=== PATIENT | male | born 1925 ===

== ENCOUNTER 2016-12-29 13:53 | Inpatient (IN) | payer MEDICARE, OTHER ==
[2016-12-29 13:53] VITALS: PULSE 83
[2016-12-29] MEDS ORDERED: Sodium Chloride 0.9% 1,000 ML IV STA ×3 (14:42→17:08)
--- NOTE | 2016-12-29 14:44 | ED PDOC ---
Hyperglycemia/Hypoglycemia Time Seen by Provider: 12/29/16 14:06 Chief Complaint (Nursing): High Blood Sugar Chief Complaint (Provider): Hyperglycemia History Per: Family (), Other (homemaker) History/Exam Limitations: clinical condition (patient has prior hx of severe Alzheimer's Dementia) Onset/Duration Of Symptoms: Days (today) Current Symptoms Are (Timing): Still Present Current Diabetic Medications: Insulin Associated Infectious Symptoms: Other (polyuria) : The patient does not have any of the infectious symptoms listed except for those marked. Treatment Prior To Provider Evaluation: Accucheck Additional Complaint(s): Bravo Ricks is an 89 year old male, with a past medical history inclusive of CAD, hTN, hypercholesterolemia, COPD, type II diabetes (insulin compliant), prostate cancer (seeds implanted) and severe Alzheimer's Dementia, who presents to the ED on 12/29/16, accompanied by his and homemaker, for the evaluation of severe hyperglycemia that had been noted today after his blood glucose was too high to register on his home glucometer. All history is as per and homemaker secondary to patient's baseline demented status. Associated polyuria has also been noted, though the patient has voiced no other complaints. PMD: Lul Treviño Past Medical History Reviewed: Historical Data, Nursing Documentation, Vital Signs Vital Signs: Last Vital Signs Temp 97.9 F 12/29/16 14:04 Pulse 86 12/29/16 14:04 Resp 18 12/29/16 14:04 BP 143/70 12/29/16 14:04 Pulse Ox 98 12/29/16 14:04 - Medical History PMH: Alzheimer's Disease, Anemia, Anxiety, Bronchitis, CAD, COPD, Dementia, Diabetes (type II), HTN, Hyperlipidemia, Malignancy (Prostate cancer, chemotherapy 4 months PIERCER with placement of radiation seed), Pneumonia Denies: Arthritis, Asthma, CHF, HIV, Hypercholesterolemia, Hypothyroidism, Chronic Kidney Disease, Rheumatoid Arthritis - Surgical History Surgical History: Cholecystectomy - Family History Family History: States: Unknown Family Hx - Living Arrangements Living Arrangements: With Family - Social History Current smoker - smoking cessation education provided: No Alcohol: None Drugs: Denies - Home Medications Home Medications: Ambulatory Orders Medication Instructions Recorded Esomeprazole Magnesium [Nexium] 20 mg PO DAILY 07/03/14 Sitagliptin Phosphate [Januvia] 100 mg PO DAILY 07/03/14 Albuterol/Ipratropium [Duoneb 3 3 ml IH Q4H PRN 10/14/15 mg/0.5 mg (3 ml) UD] ALPRAZolam [Xanax] 1 mg PO BID PRN 01/29/16 Donepezil [Aricept] 5 mg PO DAILY 01/29/16 Insulin Detemir [Levemir] 32 unit SC HS 01/29/16 Valsartan/Hydrochlorothiazide 1 tab PO DAILY 01/29/16 [Valsartan-Hctz 320-12.5 mg Tab] Amiodarone [Cordarone] 200 mg PO DAILY #0 tab 08/02/16 Tamsulosin [Flomax] 0.4 mg PO DAILY #0 cap 08/03/16 Glipizide [Glipizide ER] 5 mg PO DAILY 12/29/16 - Allergies Allergies/Adverse Reactions: Allergies Allergy/AdvReac Type Severity Reaction Status Date / Time No Known Allergies Allergy Verified 08/10/16 17:23 Review of Systems Review Of Systems: ROS cannot be obtained secondary to pt's inabilty to answer questions. (limited secondary to patient's baseline mental status) Gastrointestinal: Positive for: Other (hyperglycemia) Genitourinary Male: Positive for: Other (polyuria) Physical Exam - Reviewed Nursing Documentation Reviewed: Yes Vital Signs Reviewed: Yes - Physical Exam Appears: Positive for: Non-toxic, No Acute Distress Head Exam: Positive for: ATRAUMATIC, NORMOCEPHALIC Skin: Positive for: Normal Color, Warm, Dry Eye Exam: Positive for: Normal appearance, PERRL ENT: Positive for: Normal ENT Inspection (moist mucous membranes). Negative for : Pharyngeal Erythema, Tonsillar Exudate, Tonsillar Swelling Cardiovascular/Chest: Positive for: Regular Rate, Rhythm. Negative for: Murmur Respiratory: Positive for: Normal Breath Sounds. Negative for: Respiratory Distress Gastrointestinal/Abdominal: Positive for: Normal Exam, Soft. Negative for: Tenderness Back: Positive for: Normal Inspection Extremity: Positive for: Normal ROM (moving all extremities). Negative for: Swelling Neurologic/Psych: Positive for: Alert, Oriented (x1 (baseline as per family)) - Laboratory Results Result Diagrams: 12/30/16 04:55 12/30/16 04:55 - ECG O2 Sat by Pulse Oximetry: 98 (RA) Pulse Ox Interpretation: Normal Medical Decision Making Medical Decision Makin:06 Initial Impression: hyperglycemia; will r/o DKA, hyperglycemic vs hyperosmolic state, dehydration Initial Plan: * EKG * Labs * Udip * IV NS 1000ml at 1000mls/hr * Reevaluation Bedside accucheck is >500. 15:00 Patient will be endorsed over to Patrica Sandoval MD, pending remainder of ED workup, reevaluation and final disposition. Scribe Attestation: Documented by Mariam Rosales, acting as a scribe for Oxana Matias MD. Provider Scribe Attestation: All medical record entries made by the Scribe were at my direction and personally dictated by me. I have reviewed the chart and agree that the record accurately reflects my personal performance of the history, physical exam, medical decision making, and the department course for this patient. I have also personally directed, reviewed, and agree with the discharge instructions and disposition. Disposition - Clinical Impression Clinical Impression: Hyperosmolarity due to secondary diabetes, Hyperglycemia - Patient ED Disposition Is Patient to be Admitted: Transfer of Care Counseled Patient/Family Regarding: Studies Performed, Diagnosis - Disposition Disposition: Transfer of Care Disposition Time: 15:00 Condition: FAIR - POA Present On Arrival: Poor Glycemic Control
[2016-12-29 15:04] LABS: BASO # 0.1 K/uL (0.0-0.2); BASO % 0.6 % (0.0-2.0); EOS # 0.2 K/uL (0.0-0.7); HEMATOCRIT 48.2 % (35.0-51.0); LYMPH # 1.8 K/uL (1.0-4.3); LYMPH % 19.5 % (20.0-40.0); MEAN CELL VOLUME 98.5 fl (80.0-94.0); MEAN CORPUSCULAR HEMOGLOBIN 30.8 pg (27.0-31.0); MEAN CORPUSCULAR HGB CONC 31.2 g/dL (33.0-37.0); MONO # 0.8 K/uL (0.0-0.8); MONO % 8.1 % (0.0-10.0); NEUT # 6.5 K/uL (1.8-7.0); NEUT % 69.8 % (50.0-75.0); NRBC % 0.2 % (0.0-0.0); RED CELL DISTRIBUTION WIDTH 17.6 % (11.5-14.5); WHITE BLOOD COUNT 9.3 K/uL (4.8-10.8)
--- NOTE | 2016-12-29 15:18 | ED PDOC ---
- Laboratory Results Result Diagrams: 12/29/16 14:45 12/29/16 20:45 - ECG O2 Sat by Pulse Oximetry: 98 (RA) - Critical Care Total Time (In Min): 30 Documented Critical Care: Time excludes all time spent performint seperately billable procedures Medical Decision Making Medical Decision Making: Time: 1500 Patient signed out by Dr. Matias pending ED work and re-evaluation 4p Per respiratory, ABG performed demonstrated glucose >750. Unable to provide exact number. Osmolality ordered. Insulin ordered as well. 5p Other labs demonstrate marked hypernatremia, elevated lactic acid and accucheck of 707. Also renal failure acute. Addn'l fluids ordered. Elevated osmolality. Pt will need strict monitoring of electrolytes as glucose corrects, frequent (possibly q1h) blood draw. Necessitate ICU admission. DW Dr Louis ICU and Dr Treviño PMD for hospitalization Scribe Attestation: Documented by Joanne Ventura acting as a scribe for Patrica Sandoval MD MD Scribe Attestation: All medical record entries made by the Scribe were at my direction and personally dictated by me. I have reviewed the chart and agree that the record accurately reflects my personal performance of the history, physical exam, medical decision making, and the department course for this patient. I have also personally directed, reviewed, and agree with the discharge instructions and disposition. Disposition - Clinical Impression Clinical Impression: Hyperosmolarity due to secondary diabetes, Hyperglycemia - POA Present On Arrival: Poor Glycemic Control - Disposition Disposition: Admitted as In-Patient Disposition Time: 16:00 Condition: CRITICAL
[2016-12-29 16:05] LABS: ABG ALLEN TEST YES; ARTERIAL BLOOD GAS HCO3 23.3 mmol/L (21-28); ARTERIAL BLOOD GAS PO2 78 mm/Hg (80-100)
[2016-12-29] MEDS ORDERED: Insulin Regular 100 units/ml SC STA (16:08)
[2016-12-29] MEDS ORDERED: Insulin Regular 100 units/ml IV STA (16:08)
[2016-12-29] MEDS ORDERED: Potassium Chl 20 mEq in NS 1,000 ML IV STA (16:21)
[2016-12-29 16:27] LABS: ALB/GLOB RATIO 0.9 (1.0-2.1); BILIRUBIN,TOTAL 0.5 mg/dl (0.2-1.3); CALCIUM 9.6 mg/dL (8.4-10.2); MAGNESIUM 2.7 MG/DL (1.6-2.3); PHOSPHOROUS 3.8 mg/dl (2.5-4.5); POTASSIUM 4.6 MMOL/L (3.6-5.0); TOTAL PROTEIN 6.5 G/DL (6.3-8.2)
[2016-12-29 16:36] LABS: TROPONIN I 0.037 ng/mL (0.00-0.120)
--- NOTE | 2016-12-29 17:44 | CP.CCUPN ---
CCU Subjective - Physician Review Subjective (Free Text): [employer] PROGRESS NOTE Patient examined, interim events reviewed, discussed with ER MD: 89M with PMH: Alzheimers disease, bed bound / wheelchair bound over the past yr ; CAD, IRDM x 10 yrs, HTN, Prostate CA; brought in by family after having difficulty at home with glucometer readings showing HHH. No new symptoms reported and he has and been in his usual state of health. Family denies any other new concurrent illness or new symptoms. Afebrile, 150/80, 85, 20, 98% SPO2 on NC. Allergies: NKDA Home Meds: Aricept, Duoneb, Glipizide, Januvia, Levemir, Nexium, Valsartan/ HCTZ, Xanax, Flomax ROS: as above. No other obtainable pertinent neg or positives on 12 system review. PHSFH: no tobacco, no recent ETOH use. All other historical nursing and physician notes reviewed with no relevant information found that contributes to current medical problems. No other distress noted: EXAM- HEENT: no icterus, pupils equal and reactive NECK: no visible JVD, supple, carotids equal upstroke bilat/no bruits CHEST: decreased BS bases, no wheezes audible HEART: regular, distant, S1S2, no murmur audible, no rubs. ABD: soft, no increased distention, no focal tenderness, no HSM. BS hypoactive , EXT: trace leg edema, no peripheral/ digital cyanosis, no calf tenderness or palpable cords, distal pulses intact and symmetrical NEURO: +tone, withdraws extremities to pain. SKIN: no rashes LABS: WBC= 3.4 HGB=10.9 PLTs= 205 Coags = all normal Na= 165 K= 4.6 HCO3= 126 BUN/Cr= 58/2.9 BS= 707 Serum Osmo= 396 Trop #1 negative AP= 220. Other LFTs normal. CXR: poor inspiratory film , no gross focal consolidation noted. EKG: pending MAJOR PROBLEMS NOW: 1. Hyperosmolar state 2 uncontrolled DM II 2. Azotemia 2 Dehydration with Hypernatremia 3. Metabolic Encephalopathy 2 #1, and #2. 4. Lactic Acidosis 2 Uncontrolled DM PLAN: 1. Cautious IVF hydration (watch rate of correction- no more than 0.5 meq/l/hr ; given Hypernatremia, the corrected Na even higher at approx. 175). Daily serum osmo monitoring. Will start with D5-hypotonic fluids. 2. IV insulin infusion for now with accuchecks Q1-Q2 3. Neurochecks 4. Serial Lactates, doubt any Septic etiology. Will hold on abx coverage for now. 5, Hold home anxiolytics for now as we monitor his neuromental status as Na and Glucose values are being normalized. He appears at his baseline Dementia state as per family members. 6. Will also hold home ARB and diuretics for now.
--- NOTE | 2016-12-29 17:46 | RAD ---
HISTORY: hyperglycemia COMPARISON: Chest x-ray performed 08/10/16 TECHNIQUE: Chest, one view. FINDINGS: Examination limited by habitus and hypoinflation. The patient's chin obscures evaluation of the lung apices. LUNGS: Medial right lower lobe and left basilar atelectasis; infiltrate cannot be excluded in the proper clinical setting. Please note that chest x-ray has limited sensitivity for the detection of pulmonary masses. PLEURA: No significant pleural effusion identified. No definite pneumothorax . CARDIOVASCULAR: Cardiomegaly. Dense atherosclerotic calcifications of the aorta. OSSEOUS STRUCTURES: Degenerative changes of the spine and shoulders. VISUALIZED UPPER ABDOMEN: Elevation of the right hemidiaphragm. OTHER FINDINGS: None. IMPRESSION: Medial right lower lobe and left basilar atelectasis; infiltrate cannot be excluded in the proper clinical setting. Cardiomegaly.
[2016-12-29 18:24] LABS: CALCIUM 9.4 mg/dL (8.4-10.2); MAGNESIUM 2.6 MG/DL (1.6-2.3); PHOSPHOROUS 3.6 mg/dl (2.5-4.5); POTASSIUM 3.4 MMOL/L (3.6-5.0)
[2016-12-29] MEDS: Dextrose 5%/0.45% NS 1,000 ML IV SCH (19:47)
[2016-12-29 21:38] LABS: CALCIUM 9.7 mg/dL (8.4-10.2); MAGNESIUM 2.7 MG/DL (1.6-2.3); POTASSIUM 3.5 MMOL/L (3.6-5.0)
--- NOTE | 2016-12-29 21:39 | CP.PCM.HP ---
History of Present Illness - History of Present Illness History of Present Illness: Pt is a 89 year Hx of Alzheimer's, DM, CAD, HTN, COPD Prostate C0 admitted for elevated blood sugar Present on Admission - Present on Admission Any Indicators Present on Admission: No Past Patient History - Infectious Disease Hx of Infectious Diseases: None - Past Medical History & Family History Past Medical History?: Yes - Past Social History Alcohol: None Drugs: Denies - CARDIAC Hx Cardiac Disorders: Yes - PULMONARY Hx Respiratory Disorders: Yes - NEUROLOGICAL Hx Alzheimer's Disease: Yes Hx Dementia: Yes - HEENT Hx HEENT Problems: No - RENAL Hx Chronic Kidney Disease: No - ENDOCRINE/METABOLIC Hx Endocrine Disorders: Yes - HEMATOLOGICAL/ONCOLOGICAL Hx Anemia: Yes Hx Human Immunodeficiency Virus (HIV): No - INTEGUMENTARY Hx Dermatological Problems: No - MUSCULOSKELETAL/RHEUMATOLOGICAL Hx Arthritis: No Hx Rheumatoid Arthritis: No - GASTROINTESTINAL HX Swallowing Problems: Yes - GENITOURINARY/GYNECOLOGICAL Hx Genitourinary Disorders: Yes - PSYCHIATRIC Hx Anxiety: Yes - SURGICAL HISTORY Hx Cholecystectomy: Yes - ANESTHESIA Hx Anesthesia: Yes Hx Anesthesia Reactions: No Hx Malignant Hyperthermia: No Meds Allergies/Adverse Reactions: Allergies Allergy/AdvReac Type Severity Reaction Status Date / Time No Known Allergies Allergy Verified 08/10/16 17:23 Physical Exam - Respiratory Exam Respiratory Exam: NORMAL BREATHING PATTERN - Cardiovascular Exam Cardiovascular Exam: REGULAR RHYTHM - GI/Abdominal Exam GI & Abdominal Exam: Normal Bowel Sounds Results - Vital Signs Recent Vital Signs: Last Vital Signs Temp 97.2 F L 12/29/16 18:30 Pulse 69 12/29/16 18:30 Resp 18 12/29/16 18:30 BP 155/67 H 12/29/16 18:30 Pulse Ox 98 12/29/16 18:30 - Labs Result Diagrams: 12/29/16 14:45 12/29/16 18:09 Labs: Laboratory Results - last 24 hr 12/29/16 12/29/16 12/29/16 18:09 19:58 20:55 Sodium 168 H* Potassium 3.4 L Chloride 127 H Carbon Dioxide 23 Anion Gap 21 H BUN 54 H Creatinine 2.7 H Est GFR ( Amer) 27 Est GFR (Non-Af Amer) 22 POC Glucose (mg/dL) 430 H* 359 H Random Glucose 539 H* D Lactic Acid 3.6 H Calcium 9.4 Phosphorus 3.6 Magnesium 2.6 H Assessment & Plan - Assessment and Plan (Free Text) Assessment: NIDDM Hyperglycemic hyperosmolar state 2 to infectious process ? ? IVF Insukin cultures Hypernatremia Prerenal/ AKD / CKD IVF gradual correction of Na+ Hx COPD ? Atelectasis ? Pneumonia CXR no acute infiltrate - Date & Time Date: 12/29/16 Time: 22:22
[2016-12-29 21:49] LABS: TROPONIN I 0.042 ng/mL (0.00-0.120)
[2016-12-29] MEDS: Enoxaparin 30 mg Syringe SC SCH (23:12)
[2016-12-30 00:54] LABS: CALCIUM 9.6 mg/dL (8.4-10.2); POTASSIUM 3.7 MMOL/L (3.6-5.0)
[2016-12-30 05:44] LABS: BASO # 0.1 K/uL (0.0-0.2); BASO % 0.6 % (0.0-2.0); EOS # 0.4 K/uL (0.0-0.7); EOS % 3.8 % (0.0-4.0); HEMATOCRIT 42.5 % (35.0-51.0); LYMPH # 2.2 K/uL (1.0-4.3); LYMPH % 20.7 % (20.0-40.0); MEAN CELL VOLUME 95.2 fl (80.0-94.0); MEAN CORPUSCULAR HEMOGLOBIN 30.6 pg (27.0-31.0); MEAN CORPUSCULAR HGB CONC 32.2 g/dL (33.0-37.0); MEAN PLATELET VOLUME 11.2 fl (7.2-11.7); MONO # 0.9 K/uL (0.0-0.8); NEUT # 7.1 K/uL (1.8-7.0); NEUT % 66.9 % (50.0-75.0); NRBC % 0.1 % (0.0-0.0); RED CELL DISTRIBUTION WIDTH 16.1 % (11.5-14.5); WHITE BLOOD COUNT 10.7 K/uL (4.8-10.8)
[2016-12-30] MEDS: Dextrose 5%/0.45% NS 1,000 ML IV SCH (05:53)
[2016-12-30 06:00] LABS: ALB/GLOB RATIO 0.9 (1.0-2.1); BILIRUBIN,TOTAL 0.6 mg/dl (0.2-1.3); CALCIUM 9.4 mg/dL (8.4-10.2); POTASSIUM 3.8 MMOL/L (3.6-5.0); TOTAL PROTEIN 6.4 G/DL (6.3-8.2)
[2016-12-30 06:05] LABS: TROPONIN I 0.044 ng/mL (0.00-0.120)
[2016-12-30] MEDS: Enoxaparin 30 mg Syringe SC SCH (08:33)
--- NOTE | 2016-12-30 10:17 | CP.CCUPN ---
<Obie Alcantara - Last Filed: 12/30/16 13:58> CCU Subjective - Physician Review Subjective (Free Text): 12/30/16 13:44 Pt. seen and examined at bedside this morning during rounds in NAD, AAOx3, and eating breakfast. Pt. with no complaints at this time. 12/30/16 13:58 CCU Objective - Vital Signs / Intake & Output Vital Signs (Last 4 hours): Vital Signs Temp Pulse Resp BP Pulse Ox 12/30/16 08:00 97.2 F L 58 L 18 158/70 H 99 Intake and Output (Last 8hrs): Intake & Output 12/29/16 12/30/16 12/30/16 22:59 06:59 14:59 Intake Total 1050 206 Balance 1050 206 Intake: IV 1000 206 Intake, Piggyback 50 - Physical Exam Head: Positive for: Atraumatic, Normocephalic Conjunctiva: Positive for: Other (Negative for Icterus) Neck: Positive for: Normal Range of Motion Respiratory/Chest: Positive for: Clear to Auscultation Cardiovascular: Positive for: Regular Rate and Rhythm, Normal S1, S2 Abdomen: Negative for: Tenderness Neurological: Positive for: CN II-XII Intact Psychiatric: Positive for: Alert, Oriented x 3 - Medications Active Medications: Active Medications Generic Name Dose Route Start Last Admin Trade Name Clau PRN Reason Stop Dose Admin Enoxaparin Sodium 30 mg 12/29/16 21:00 12/30/16 08:33 Lovenox SC 30 mg DAILY EUGENE Administration Protocol Insulin Human Regular 100 101 mls @ 3.03 mls/hr 12/29/16 17:45 12/30/16 04:57 units/ Sodium Chloride IVPB 3 units/hr .Q24H EUGENE Titration Protocol 3 UNITS/HR Dextrose 1,000 mls @ 100 mls/hr 12/30/16 10:15 Dextrose 5% In Water 1000 Ml IV 12/31/16 10:16 .Q10H EUGENE Pantoprazole Sodium 40 mg 12/30/16 09:00 12/30/16 08:33 Protonix Inj IVP 40 mg DAILY EUGENE Administration - Patient Studies Lab Studies: Lab Studies 12/30/16 12/30/16 12/30/16 Range/Units 06:58 06:02 04:55 WBC 10.7 (4.8-10.8) K/uL RBC 4.46 (4.40-5.90) Mil/uL Hgb 13.7 (12.0-18.0) g/dL Hct 42.5 (35.0-51.0) % MCV 95.2 H D (80.0-94.0) fl MCH 30.6 (27.0-31.0) pg MCHC 32.2 L (33.0-37.0) g/dL RDW 16.1 H (11.5-14.5) % Plt Count 95 L (130-400) K/uL MPV 11.2 (7.2-11.7) fl Neut % (Auto) 66.9 (50.0-75.0) % Lymph % (Auto) 20.7 (20.0-40.0) % [place] % (Auto) 8.0 (0.0-10.0) % Eos % (Auto) 3.8 (0.0-4.0) % Baso % (Auto) 0.6 (0.0-2.0) % Neut # 7.1 H (1.8-7.0) K/uL Lymph # 2.2 (1.0-4.3) K/uL [place] # 0.9 H (0.0-0.8) K/uL Eos # 0.4 (0.0-0.7) K/uL Baso # 0.1 (0.0-0.2) K/uL Sodium 171 H* (132-148) mmol/l Potassium 3.8 (3.6-5.0) MMOL/L Chloride 131 H (98-107) mmol/L Carbon Dioxide 27 (22-30) mmol/L Anion Gap 17 (10-20) BUN 48 H (9-20) mg/dl Creatinine 2.4 H (0.8-1.5) mg/dL Est GFR ( Amer) 31 Est GFR (Non-Af Amer) 26 POC Glucose (mg/dL) 242 H 233 H 243 H (65-110) mg/dL Random Glucose 235 H (75-110) mg/dL Serum Osmolality 357 H (272-300) mosm/kg Lactic Acid 1.6 (0.7-2.1) MMOL/L Calcium 9.4 (8.4-10.2) mg/dL Phosphorus (2.5-4.5) mg/dl Magnesium (1.6-2.3) MG/DL Total Bilirubin 0.6 (0.2-1.3) mg/dl AST 27 (17-59) U/L ALT 44 (21-72) U/L Alkaline Phosphatase 175 H D (38-126) U/L Troponin I 0.0440 (0.00-0.120) ng/mL Total Protein 6.4 (6.3-8.2) G/DL Albumin 3.1 L (3.5-5.0) g/dL Globulin 3.3 (2.2-3.9) gm/dL Albumin/Globulin Ratio 0.9 L (1.0-2.1) 12/30/16 12/30/16 12/30/16 Range/Units 04:02 03:03 02:08 WBC (4.8-10.8) K/uL RBC (4.40-5.90) Mil/uL Hgb (12.0-18.0) g/dL Hct (35.0-51.0) % MCV (80.0-94.0) fl MCH (27.0-31.0) pg MCHC (33.0-37.0) g/dL RDW (11.5-14.5) % Plt Count (130-400) K/uL MPV (7.2-11.7) fl Neut % (Auto) (50.0-75.0) % Lymph % (Auto) (20.0-40.0) % [place] % (Auto) (0.0-10.0) % Eos % (Auto) (0.0-4.0) % Baso % (Auto) (0.0-2.0) % Neut # (1.8-7.0) K/uL Lymph # (1.0-4.3) K/uL [place] # (0.0-0.8) K/uL Eos # (0.0-0.7) K/uL Baso # (0.0-0.2) K/uL Sodium (132-148) mmol/l Potassium (3.6-5.0) MMOL/L Chloride (98-107) mmol/L Carbon Dioxide (22-30) mmol/L Anion Gap (10-20) BUN (9-20) mg/dl Creatinine (0.8-1.5) mg/dL Est GFR ( Amer) Est GFR (Non-Af Amer) POC Glucose (mg/dL) 260 H 285 H 292 H (65-110) mg/dL Random Glucose (75-110) mg/dL Serum Osmolality (272-300) mosm/kg Lactic Acid (0.7-2.1) MMOL/L Calcium (8.4-10.2) mg/dL Phosphorus (2.5-4.5) mg/dl Magnesium (1.6-2.3) MG/DL Total Bilirubin (0.2-1.3) mg/dl AST (17-59) U/L ALT (21-72) U/L Alkaline Phosphatase (38-126) U/L Troponin I (0.00-0.120) ng/mL Total Protein (6.3-8.2) G/DL Albumin (3.5-5.0) g/dL Globulin (2.2-3.9) gm/dL Albumin/Globulin Ratio (1.0-2.1) 12/30/16 12/30/16 12/30/16 Range/Units 01:04 00:07 00:05 WBC (4.8-10.8) K/uL RBC (4.40-5.90) Mil/uL Hgb (12.0-18.0) g/dL Hct (35.0-51.0) % MCV (80.0-94.0) fl MCH (27.0-31.0) pg MCHC (33.0-37.0) g/dL RDW (11.5-14.5) % Plt Count (130-400) K/uL MPV (7.2-11.7) fl Neut % (Auto) (50.0-75.0) % Lymph % (Auto) (20.0-40.0) % [place] % (Auto) (0.0-10.0) % Eos % (Auto) (0.0-4.0) % Baso % (Auto) (0.0-2.0) % Neut # (1.8-7.0) K/uL Lymph # (1.0-4.3) K/uL [place] # (0.0-0.8) K/uL Eos # (0.0-0.7) K/uL Baso # (0.0-0.2) K/uL Sodium 170 H* (132-148) mmol/l Potassium 3.7 (3.6-5.0) MMOL/L Chloride 131 H (98-107) mmol/L Carbon Dioxide 23 (22-30) mmol/L Anion Gap 20 (10-20) BUN 50 H (9-20) mg/dl Creatinine 2.5 H (0.8-1.5) mg/dL Est GFR ( Amer) 30 Est GFR (Non-Af Amer) 24 POC Glucose (mg/dL) 343 H 336 H (65-110) mg/dL Random Glucose 338 H (75-110) mg/dL Serum Osmolality (272-300) mosm/kg Lactic Acid (0.7-2.1) MMOL/L Calcium 9.6 (8.4-10.2) mg/dL Phosphorus (2.5-4.5) mg/dl Magnesium (1.6-2.3) MG/DL Total Bilirubin (0.2-1.3) mg/dl AST (17-59) U/L ALT (21-72) U/L Alkaline Phosphatase (38-126) U/L Troponin I (0.00-0.120) ng/mL Total Protein (6.3-8.2) G/DL Albumin (3.5-5.0) g/dL Globulin (2.2-3.9) gm/dL Albumin/Globulin Ratio (1.0-2.1) 12/29/16 12/29/16 12/29/16 Range/Units 23:04 21:57 20:55 WBC (4.8-10.8) K/uL RBC (4.40-5.90) Mil/uL Hgb (12.0-18.0) g/dL Hct (35.0-51.0) % MCV (80.0-94.0) fl MCH (27.0-31.0) pg MCHC (33.0-37.0) g/dL RDW (11.5-14.5) % Plt Count (130-400) K/uL MPV (7.2-11.7) fl Neut % (Auto) (50.0-75.0) % Lymph % (Auto) (20.0-40.0) % [place] % (Auto) (0.0-10.0) % Eos % (Auto) (0.0-4.0) % Baso % (Auto) (0.0-2.0) % Neut # (1.8-7.0) K/uL Lymph # (1.0-4.3) K/uL [place] # (0.0-0.8) K/uL Eos # (0.0-0.7) K/uL Baso # (0.0-0.2) K/uL Sodium (132-148) mmol/l Potassium (3.6-5.0) MMOL/L Chloride (98-107) mmol/L Carbon Dioxide (22-30) mmol/L Anion Gap (10-20) BUN (9-20) mg/dl Creatinine (0.8-1.5) mg/dL Est GFR ( Amer) Est GFR (Non-Af Amer) POC Glucose (mg/dL) 373 H 388 H 359 H (65-110) mg/dL Random Glucose (75-110) mg/dL Serum Osmolality (272-300) mosm/kg Lactic Acid (0.7-2.1) MMOL/L Calcium (8.4-10.2) mg/dL Phosphorus (2.5-4.5) mg/dl Magnesium (1.6-2.3) MG/DL Total Bilirubin (0.2-1.3) mg/dl AST (17-59) U/L ALT (21-72) U/L Alkaline Phosphatase (38-126) U/L Troponin I (0.00-0.120) ng/mL Total Protein (6.3-8.2) G/DL Albumin (3.5-5.0) g/dL Globulin (2.2-3.9) gm/dL Albumin/Globulin Ratio (1.0-2.1) 12/29/16 12/29/16 12/29/16 Range/Units 20:45 20:30 19:58 WBC (4.8-10.8) K/uL RBC (4.40-5.90) Mil/uL Hgb (12.0-18.0) g/dL Hct (35.0-51.0) % MCV (80.0-94.0) fl MCH (27.0-31.0) pg MCHC (33.0-37.0) g/dL RDW (11.5-14.5) % Plt Count (130-400) K/uL MPV (7.2-11.7) fl Neut % (Auto) (50.0-75.0) % Lymph % (Auto) (20.0-40.0) % [place] % (Auto) (0.0-10.0) % Eos % (Auto) (0.0-4.0) % Baso % (Auto) (0.0-2.0) % Neut # (1.8-7.0) K/uL Lymph # (1.0-4.3) K/uL [place] # (0.0-0.8) K/uL Eos # (0.0-0.7) K/uL Baso # (0.0-0.2) K/uL Sodium 169 H* (132-148) mmol/l Potassium 3.5 L (3.6-5.0) MMOL/L Chloride 129 H (98-107) mmol/L Carbon Dioxide 26 (22-30) mmol/L Anion Gap 18 (10-20) BUN 54 H (9-20) mg/dl Creatinine 2.6 H (0.8-1.5) mg/dL Est GFR ( Amer) 28 Est GFR (Non-Af Amer) 23 POC Glucose (mg/dL) 430 H* (65-110) mg/dL Random Glucose 426 H* D (75-110) mg/dL Serum Osmolality (272-300) mosm/kg Lactic Acid 2.0 (0.7-2.1) MMOL/L Calcium 9.7 (8.4-10.2) mg/dL Phosphorus 3.0 (2.5-4.5) mg/dl Magnesium 2.7 H (1.6-2.3) MG/DL Total Bilirubin (0.2-1.3) mg/dl AST (17-59) U/L ALT (21-72) U/L Alkaline Phosphatase (38-126) U/L Troponin I 0.0420 (0.00-0.120) ng/mL Total Protein (6.3-8.2) G/DL Albumin (3.5-5.0) g/dL Globulin (2.2-3.9) gm/dL Albumin/Globulin Ratio (1.0-2.1) 12/29/16 12/29/16 Range/Units 18:09 17:14 WBC (4.8-10.8) K/uL RBC (4.40-5.90) Mil/uL Hgb (12.0-18.0) g/dL Hct (35.0-51.0) % MCV (80.0-94.0) fl MCH (27.0-31.0) pg MCHC (33.0-37.0) g/dL RDW (11.5-14.5) % Plt Count (130-400) K/uL MPV (7.2-11.7) fl Neut % (Auto) (50.0-75.0) % Lymph % (Auto) (20.0-40.0) % [place] % (Auto) (0.0-10.0) % Eos % (Auto) (0.0-4.0) % Baso % (Auto) (0.0-2.0) % Neut # (1.8-7.0) K/uL Lymph # (1.0-4.3) K/uL [place] # (0.0-0.8) K/uL Eos # (0.0-0.7) K/uL Baso # (0.0-0.2) K/uL Sodium 168 H* (132-148) mmol/l Potassium 3.4 L (3.6-5.0) MMOL/L Chloride 127 H (98-107) mmol/L Carbon Dioxide 23 (22-30) mmol/L Anion Gap 21 H (10-20) BUN 54 H (9-20) mg/dl Creatinine 2.7 H (0.8-1.5) mg/dL Est GFR ( Amer) 27 Est GFR (Non-Af Amer) 22 POC Glucose (mg/dL) 477 H* (65-110) mg/dL Random Glucose 539 H* D (75-110) mg/dL Serum Osmolality (272-300) mosm/kg Lactic Acid 3.6 H (0.7-2.1) MMOL/L Calcium 9.4 (8.4-10.2) mg/dL Phosphorus 3.6 (2.5-4.5) mg/dl Magnesium 2.6 H (1.6-2.3) MG/DL Total Bilirubin (0.2-1.3) mg/dl AST (17-59) U/L ALT (21-72) U/L Alkaline Phosphatase (38-126) U/L Troponin I (0.00-0.120) ng/mL Total Protein (6.3-8.2) G/DL Albumin (3.5-5.0) g/dL Globulin (2.2-3.9) gm/dL Albumin/Globulin Ratio (1.0-2.1) Laboratory Results - last 24 hr 12/29/16 12/29/16 12/29/16 17:14 18:09 19:58 WBC RBC Hgb Hct MCV MCH MCHC RDW Plt Count MPV Neut % (Auto) Lymph % (Auto) [place] % (Auto) Eos % (Auto) Baso % (Auto) Neut # Lymph # [place] # Eos # Baso # Sodium 168 H* Potassium 3.4 L Chloride 127 H Carbon Dioxide 23 Anion Gap 21 H BUN 54 H Creatinine 2.7 H Est GFR ( Amer) 27 Est GFR (Non-Af Amer) 22 POC Glucose (mg/dL) 477 H* 430 H* Random Glucose 539 H* D Serum Osmolality Lactic Acid 3.6 H Calcium 9.4 Phosphorus 3.6 Magnesium 2.6 H Total Bilirubin AST ALT Alkaline Phosphatase Troponin I Total Protein Albumin Globulin Albumin/Globulin Ratio 12/29/16 12/29/16 12/29/16 20:30 20:45 20:55 WBC RBC Hgb Hct MCV MCH MCHC RDW Plt Count MPV Neut % (Auto) Lymph % (Auto) [place] % (Auto) Eos % (Auto) Baso % (Auto) Neut # Lymph # [place] # Eos # Baso # Sodium 169 H* Potassium 3.5 L Chloride 129 H Carbon Dioxide 26 Anion Gap 18 BUN 54 H Creatinine 2.6 H Est GFR ( Amer) 28 Est GFR (Non-Af Amer) 23 POC Glucose (mg/dL) 359 H Random Glucose 426 H* D Serum Osmolality Lactic Acid 2.0 Calcium 9.7 Phosphorus 3.0 Magnesium 2.7 H Total Bilirubin AST ALT Alkaline Phosphatase Troponin I 0.0420 Total Protein Albumin Globulin Albumin/Globulin Ratio 12/29/16 12/29/16 12/30/16 21:57 23:04 00:05 WBC RBC Hgb Hct MCV MCH MCHC RDW Plt Count MPV Neut % (Auto) Lymph % (Auto) [place] % (Auto) Eos % (Auto) Baso % (Auto) Neut # Lymph # [place] # Eos # Baso # Sodium 170 H* Potassium 3.7 Chloride 131 H Carbon Dioxide 23 Anion Gap 20 BUN 50 H Creatinine 2.5 H Est GFR ( Amer) 30 Est GFR (Non-Af Amer) 24 POC Glucose (mg/dL) 388 H 373 H Random Glucose 338 H Serum Osmolality Lactic Acid Calcium 9.6 Phosphorus Magnesium Total Bilirubin AST ALT Alkaline Phosphatase Troponin I Total Protein Albumin Globulin Albumin/Globulin Ratio 12/30/16 12/30/16 12/30/16 00:07 01:04 02:08 WBC RBC Hgb Hct MCV MCH MCHC RDW Plt Count MPV Neut % (Auto) Lymph % (Auto) [place] % (Auto) Eos % (Auto) Baso % (Auto) Neut # Lymph # [place] # Eos # Baso # Sodium Potassium Chloride Carbon Dioxide Anion Gap BUN Creatinine Est GFR ( Amer) Est GFR (Non-Af Amer) POC Glucose (mg/dL) 336 H 343 H 292 H Random Glucose Serum Osmolality Lactic Acid Calcium Phosphorus Magnesium Total Bilirubin AST ALT Alkaline Phosphatase Troponin I Total Protein Albumin Globulin Albumin/Globulin Ratio 12/30/16 12/30/16 12/30/16 03:03 04:02 04:55 WBC 10.7 RBC 4.46 Hgb 13.7 Hct 42.5 MCV 95.2 H D MCH 30.6 MCHC 32.2 L RDW 16.1 H Plt Count 95 L MPV 11.2 Neut % (Auto) 66.9 Lymph % (Auto) 20.7 [place] % (Auto) 8.0 Eos % (Auto) 3.8 Baso % (Auto) 0.6 Neut # 7.1 H Lymph # 2.2 [place] # 0.9 H Eos # 0.4 Baso # 0.1 Sodium 171 H* Potassium 3.8 Chloride 131 H Carbon Dioxide 27 Anion Gap 17 BUN 48 H Creatinine 2.4 H Est GFR ( Amer) 31 Est GFR (Non-Af Amer) 26 POC Glucose (mg/dL) 285 H 260 H 243 H Random Glucose 235 H Serum Osmolality 357 H Lactic Acid 1.6 Calcium 9.4 Phosphorus Magnesium Total Bilirubin 0.6 AST 27 ALT 44 Alkaline Phosphatase 175 H D Troponin I 0.0440 Total Protein 6.4 Albumin 3.1 L Globulin 3.3 Albumin/Globulin Ratio 0.9 L 12/30/16 12/30/16 06:02 06:58 WBC RBC Hgb Hct MCV MCH MCHC RDW Plt Count MPV Neut % (Auto) Lymph % (Auto) [place] % (Auto) Eos % (Auto) Baso % (Auto) Neut # Lymph # [place] # Eos # Baso # Sodium Potassium Chloride Carbon Dioxide Anion Gap BUN Creatinine Est GFR ( Amer) Est GFR (Non-Af Amer) POC Glucose (mg/dL) 233 H 242 H Random Glucose Serum Osmolality Lactic Acid Calcium Phosphorus Magnesium Total Bilirubin AST ALT Alkaline Phosphatase Troponin I Total Protein Albumin Globulin Albumin/Globulin Ratio Fingerstick Blood Sugar Results: 211 Review of Systems - Review of Systems Review of Systems: See HPI Critical Care Progress Note - Nutrition Nutrition: Nutrition Category Date Time Status Dysphagia/Modified Consistency Diet [DIET] Diets 12/29/16 Dinner Active Assessment/Plan - Assessment and Plan (Free Text) Assessment: 89 y.o. 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 and Metabolic encephaloathy 1- Hyperglycemia Hyperosmolar state secondary to uncontrolled Type II DM a- I.V. Fluids- D5% @ 100cc/hr b- Insulin drip- 3units/hr c- Accuchecks q2hrs d- Neurochecks Q2hrs e- Repeat CMP Lactic Acidosis- 3.6 > 2.0 > 1.6, Secondary to Uncontrolled DM a- I.V. fluids b- Repeat VBG [id number] > 171 a- I.V. fluids- D5% @100cc/hr b- Repeat CMP Diet a- Consistent carbohydrate GI prophylaxis a- Protonix 40mg IVP DVT prophylaxis a- Renally adjust 30mg sc <Augustine Louis - Last Filed: 12/30/16 15:37> CCU Subjective - Physician Review Subjective (Free Text): Attestation: Patient seen and examined at the bedside with Resident Dr. Anisa Alcantara; and I agree with his outline of plans and management documented below as discussed on AM rounds reflecting my review of all applicable clinical data, and participation in the care of the patient throughout the day in ICU; today, December 30, 2016.
--- NOTE | 2016-12-30 10:38 | PQF GENQUE ---
Dr. Marques, Please clarify the stage of the chronic kidney disease: if known Stage 1 Stage 2 (mild) Stage 3 (moderate) Stage 4 (severe) Stage 5 Other (please specify) Unable to determine Unknown H and P: Hypernatremia Prerenal/ AKD /CKD;IVF gradual correction of Na+ BUN: 58->54->54->50-.48 Creatinine:2.9->2.7->2.6-.2.5 GFR (Af Amer/Non- Af Amer):->->/->/-> This form is a permanent part of the medical record Clarification of your documentation is requested to better reflect the severity of illness and intensity of treatment of your patient. Indicators present [] Specify: [] [] Specify: [] [] Specify: [] [] Specify: [] Location in the medical record that reflects the above clinical findings: [] Treatment Provided: [] PHYSICIAN'S RESPONSE Based on your medical judgment of the clinical indicators outlined above please clarify the following: [] Practitioner response [] If unable to determine, please check the box, sign and date. Present On Admission (POA) Indicator: [] Present at the time of admission [] Not present at the time of admission [] Clinically Undetermined In responding to this query, please exercise your independent professional judgment. The fact that a question is asked does not imply that any particular answer is desired or expected. Thank you for your clarification on this documentation. If you have any questions please call. * Thank you, Blossom Rich RN BSN ext. #[phone] MTDD
--- NOTE | 2016-12-30 18:39 | CP.PCM.PN ---
Subjective - Date & Time of Evaluation Date of Evaluation: 12/30/16 Time of Evaluation: 22:22 - Subjective Subjective: Doing well Objective - Vital Signs/Intake and Output Vital Signs (last 24 hours): Temp Pulse Resp BP Pulse Ox 97.2 F L 67 18 140/71 97 12/30/16 16:00 12/30/16 18:00 12/30/16 18:00 12/30/16 18:00 12/30/16 18:00 Intake and Output: 12/30/16 12/30/16 06:59 18:59 Intake Total 1050 1580 Balance 1050 1580 - Medications Medications: Current Medications Enoxaparin Sodium (Lovenox) 30 mg SC DAILY EUGENE PRN Reason: Protocol Last Admin: 12/30/16 08:33 Dose: 30 mg Dextrose (Dextrose 5% In Water 1000 Ml) 1,000 mls @ 100 mls/hr IV .Q10H EUGENE Stop: 12/31/16 10:16 Last Admin: 12/30/16 10:28 Dose: 100 mls/hr Insulin Human Regular 100 (units/ Sodium Chloride) 101 mls @ 3.03 mls/hr IVPB .Q24H EUGENE; 3 UNITS/HR PRN Reason: Protocol Last Admin: 12/30/16 18:14 Dose: 6.06 mls/hr Pantoprazole Sodium (Protonix Inj) 40 mg IVP DAILY EUGENE Last Admin: 12/30/16 08:33 Dose: 40 mg - Labs Labs: 12/30/16 04:55 12/30/16 04:55 - Respiratory Exam Respiratory Exam: NORMAL BREATHING PATTERN - Cardiovascular Exam Cardiovascular Exam: REGULAR RHYTHM - GI/Abdominal Exam GI & Abdominal Exam: Normal Bowel Sounds Assessment and Plan - Assessment and Plan (Free Text) Assessment: NIDDM Hyperglycemic hyperosmolar state 2 to infectious process ? ? IVF Insukin cultures Hypernatremia Prerenal/ AKD / CKD IVF gradual correction of Na+ Hx COPD ? Atelectasis ? Pneumonia CXR no acute infiltrate
--- NOTE | 2016-12-30 19:38 | CARD ---
APPROVED REPORT EKG Measurement Heart [id number] <Conclusion> Normal sinus rhythm Left ventricular hypertrophy with repolarization abnormality Prolonged QT Abnormal ECG artefact present
[2016-12-31 07:47] LABS: HEMATOCRIT 38.5 % (35.0-51.0); MEAN CORPUSCULAR HGB CONC 31.6 g/dL (33.0-37.0)
[2016-12-31 08:12] LABS: ALB/GLOB RATIO 0.9 (1.0-2.1); BILIRUBIN,TOTAL 0.5 mg/dl (0.2-1.3); CALCIUM 8.2 mg/dL (8.4-10.2); POTASSIUM 3.5 MMOL/L (3.6-5.0); TOTAL PROTEIN 5.7 G/DL (6.3-8.2)
[2016-12-31] MEDS: Enoxaparin 30 mg Syringe SC SCH (08:17)
--- NOTE | 2016-12-31 09:09 | CP.CCUPN ---
CCU Subjective - Physician Review Events Since Last Encounter (Free Text): 12/31/16 09:07 Alert and awake, no sob, no pain, Vitals stable, on D5w and insulin infusion, electrolytes including Na is improving. CCU Objective - Vital Signs / Intake & Output Vital Signs (Last 4 hours): Vital Signs Pulse Resp BP Pulse Ox 12/31/16 05:58 52 L 20 112/53 L 97 Intake and Output (Last 8hrs): Intake & Output 12/30/16 12/31/16 12/31/16 22:59 06:59 14:59 Intake Total 1021 930 Balance 1021 930 Intake: IV 921 830 Oral 100 100 - Physical Exam Narrative Physical Exam (Free Text): 12/31/16 09:08 P/E Neck: No JVD Lungs: No ronchi or crackles Abdomen: soft, non-tender Ext: No edema Heart; no gallop Head: Positive for: Atraumatic, Normocephalic Conjunctiva: Positive for: Other (Negative for Icterus) Neck: Positive for: Normal Range of Motion Respiratory/Chest: Positive for: Clear to Auscultation Cardiovascular: Positive for: Regular Rate and Rhythm, Normal S1, S2 Abdomen: Negative for: Tenderness Neurological: Positive for: CN II-XII Intact Psychiatric: Positive for: Alert, Oriented x 3 - Medications Active Medications: Active Medications Generic Name Dose Route Start Last Admin Trade Name Freq PRN Reason Stop Dose Admin Enoxaparin Sodium 30 mg 12/29/16 21:00 12/31/16 08:17 Lovenox SC 30 mg DAILY EUGENE Administration Protocol Dextrose 1,000 mls @ 100 mls/hr 12/30/16 10:15 12/31/16 05:56 Dextrose 5% In Water 1000 Ml IV 12/31/16 10:16 100 mls/hr .Q10H EUGENE Administration Insulin Human Regular 100 101 mls @ 3.03 mls/hr 12/30/16 15:34 12/31/16 06:08 units/ Sodium Chloride IVPB 3 units/hr .Q24H EUGENE Titration Protocol 3 UNITS/HR Pantoprazole Sodium 40 mg 12/30/16 09:00 12/31/16 08:17 Protonix Inj IVP 40 mg DAILY EUGENE Administration - Patient Studies Lab Studies: Lab Studies 12/31/16 12/31/16 12/31/16 Range/Units 06:00 05:30 03:59 WBC 9.0 (4.8-10.8) K/uL RBC 4.05 L (4.40-5.90) Mil/uL Hgb 12.2 (12.0-18.0) g/dL Hct 38.5 (35.0-51.0) % MCV 95.0 H (80.0-94.0) fl MCH 30.0 (27.0-31.0) pg MCHC 31.6 L (33.0-37.0) g/dL RDW 16.0 H (11.5-14.5) % Plt Count 85 L (130-400) K/uL Sodium 157 H (132-148) mmol/l Potassium 3.5 L (3.6-5.0) MMOL/L Chloride 122 H (98-107) mmol/L Carbon Dioxide 23 (22-30) mmol/L Anion Gap 16 (10-20) BUN 36 H (9-20) mg/dl Creatinine 2.0 H (0.8-1.5) mg/dL Est GFR ( Amer) 38 Est GFR (Non-Af Amer) 32 POC Glucose (mg/dL) 172 H 114 H (65-110) mg/dL Random Glucose 143 H (75-110) mg/dL Calcium 8.2 L (8.4-10.2) mg/dL Total Bilirubin 0.5 (0.2-1.3) mg/dl AST 60 H D (17-59) U/L ALT 67 (21-72) U/L Alkaline Phosphatase 158 H (38-126) U/L Total Protein 5.7 L (6.3-8.2) G/DL Albumin 2.6 L (3.5-5.0) g/dL Globulin 3.0 (2.2-3.9) gm/dL Albumin/Globulin Ratio 0.9 L (1.0-2.1) 12/31/16 12/31/16 12/30/16 Range/Units 02:08 00:08 22:05 WBC (4.8-10.8) K/uL RBC (4.40-5.90) Mil/uL Hgb (12.0-18.0) g/dL Hct (35.0-51.0) % MCV (80.0-94.0) fl MCH (27.0-31.0) pg MCHC (33.0-37.0) g/dL RDW (11.5-14.5) % Plt Count (130-400) K/uL Sodium (132-148) mmol/l Potassium (3.6-5.0) MMOL/L Chloride (98-107) mmol/L Carbon Dioxide (22-30) mmol/L Anion Gap (10-20) BUN (9-20) mg/dl Creatinine (0.8-1.5) mg/dL Est GFR ( Amer) Est GFR (Non-Af Amer) POC Glucose (mg/dL) 162 H 184 H 195 H (65-110) mg/dL Random Glucose (75-110) mg/dL Calcium (8.4-10.2) mg/dL Total Bilirubin (0.2-1.3) mg/dl AST (17-59) U/L ALT (21-72) U/L Alkaline Phosphatase (38-126) U/L Total Protein (6.3-8.2) G/DL Albumin (3.5-5.0) g/dL Globulin (2.2-3.9) gm/dL Albumin/Globulin Ratio (1.0-2.1) 12/30/16 12/30/16 12/30/16 Range/Units 19:57 18:13 15:06 WBC (4.8-10.8) K/uL RBC (4.40-5.90) Mil/uL Hgb (12.0-18.0) g/dL Hct (35.0-51.0) % MCV (80.0-94.0) fl MCH (27.0-31.0) pg MCHC (33.0-37.0) g/dL RDW (11.5-14.5) % Plt Count (130-400) K/uL Sodium (132-148) mmol/l Potassium (3.6-5.0) MMOL/L Chloride (98-107) mmol/L Carbon Dioxide (22-30) mmol/L Anion Gap (10-20) BUN (9-20) mg/dl Creatinine (0.8-1.5) mg/dL Est GFR ( Amer) Est GFR (Non-Af Amer) POC Glucose (mg/dL) 254 H 299 H 419 H* (65-110) mg/dL Random Glucose (75-110) mg/dL Calcium (8.4-10.2) mg/dL Total Bilirubin (0.2-1.3) mg/dl AST (17-59) U/L ALT (21-72) U/L Alkaline Phosphatase (38-126) U/L Total Protein (6.3-8.2) G/DL Albumin (3.5-5.0) g/dL Globulin (2.2-3.9) gm/dL Albumin/Globulin Ratio (1.0-2.1) 12/30/16 12/30/16 12/30/16 Range/Units 12:58 11:01 09:07 WBC (4.8-10.8) K/uL RBC (4.40-5.90) Mil/uL Hgb (12.0-18.0) g/dL Hct (35.0-51.0) % MCV (80.0-94.0) fl MCH (27.0-31.0) pg MCHC (33.0-37.0) g/dL RDW (11.5-14.5) % Plt Count (130-400) K/uL Sodium (132-148) mmol/l Potassium (3.6-5.0) MMOL/L Chloride (98-107) mmol/L Carbon Dioxide (22-30) mmol/L Anion Gap (10-20) BUN (9-20) mg/dl Creatinine (0.8-1.5) mg/dL Est GFR ( Amer) Est GFR (Non-Af Amer) POC Glucose (mg/dL) > 500 H* 341 H 232 H (65-110) mg/dL Random Glucose (75-110) mg/dL Calcium (8.4-10.2) mg/dL Total Bilirubin (0.2-1.3) mg/dl AST (17-59) U/L ALT (21-72) U/L Alkaline Phosphatase (38-126) U/L Total Protein (6.3-8.2) G/DL Albumin (3.5-5.0) g/dL Globulin (2.2-3.9) gm/dL Albumin/Globulin Ratio (1.0-2.1) 12/30/16 Range/Units 08:12 WBC (4.8-10.8) K/uL RBC (4.40-5.90) Mil/uL Hgb (12.0-18.0) g/dL Hct (35.0-51.0) % MCV (80.0-94.0) fl MCH (27.0-31.0) pg MCHC (33.0-37.0) g/dL RDW (11.5-14.5) % Plt Count (130-400) K/uL Sodium (132-148) mmol/l Potassium (3.6-5.0) MMOL/L Chloride (98-107) mmol/L Carbon Dioxide (22-30) mmol/L Anion Gap (10-20) BUN (9-20) mg/dl Creatinine (0.8-1.5) mg/dL Est GFR ( Amer) Est GFR (Non-Af Amer) POC Glucose (mg/dL) 211 H (65-110) mg/dL Random Glucose (75-110) mg/dL Calcium (8.4-10.2) mg/dL Total Bilirubin (0.2-1.3) mg/dl AST (17-59) U/L ALT (21-72) U/L Alkaline Phosphatase (38-126) U/L Total Protein (6.3-8.2) G/DL Albumin (3.5-5.0) g/dL Globulin (2.2-3.9) gm/dL Albumin/Globulin Ratio (1.0-2.1) Laboratory Results - last 24 hr 12/30/16 12/30/16 12/30/16 08:12 09:07 11:01 WBC RBC Hgb Hct MCV MCH MCHC RDW Plt Count Sodium Potassium Chloride Carbon Dioxide Anion Gap BUN Creatinine Est GFR ( Amer) Est GFR (Non-Af Amer) POC Glucose (mg/dL) 211 H 232 H 341 H Random Glucose Calcium Total Bilirubin AST ALT Alkaline Phosphatase Total Protein Albumin Globulin Albumin/Globulin Ratio 12/30/16 12/30/16 12/30/16 12:58 15:06 18:13 WBC RBC Hgb Hct MCV MCH MCHC RDW Plt Count Sodium Potassium Chloride Carbon Dioxide Anion Gap BUN Creatinine Est GFR ( Amer) Est GFR (Non-Af Amer) POC Glucose (mg/dL) > 500 H* 419 H* 299 H Random Glucose Calcium Total Bilirubin AST ALT Alkaline Phosphatase Total Protein Albumin Globulin Albumin/Globulin Ratio 12/30/16 12/30/16 12/31/16 19:57 22:05 00:08 WBC RBC Hgb Hct MCV MCH MCHC RDW Plt Count Sodium Potassium Chloride Carbon Dioxide Anion Gap BUN Creatinine Est GFR ( Amer) Est GFR (Non-Af Amer) POC Glucose (mg/dL) 254 H 195 H 184 H Random Glucose Calcium Total Bilirubin AST ALT Alkaline Phosphatase Total Protein Albumin Globulin Albumin/Globulin Ratio 12/31/16 12/31/16 12/31/16 02:08 03:59 05:30 WBC 9.0 RBC 4.05 L Hgb 12.2 Hct 38.5 MCV 95.0 H MCH 30.0 MCHC 31.6 L RDW 16.0 H Plt Count 85 L Sodium 157 H Potassium 3.5 L Chloride 122 H Carbon Dioxide 23 Anion Gap 16 BUN 36 H Creatinine 2.0 H Est GFR ( Amer) 38 Est GFR (Non-Af Amer) 32 POC Glucose (mg/dL) 162 H 114 H Random Glucose 143 H Calcium 8.2 L Total Bilirubin 0.5 AST 60 H D ALT 67 Alkaline Phosphatase 158 H Total Protein 5.7 L Albumin 2.6 L Globulin 3.0 Albumin/Globulin Ratio 0.9 L 12/31/16 06:00 WBC RBC Hgb Hct MCV MCH MCHC RDW Plt Count Sodium Potassium Chloride Carbon Dioxide Anion Gap BUN Creatinine Est GFR ( Amer) Est GFR (Non-Af Amer) POC Glucose (mg/dL) 172 H Random Glucose Calcium Total Bilirubin AST ALT Alkaline Phosphatase Total Protein Albumin Globulin Albumin/Globulin Ratio Fingerstick Blood Sugar Results: 168 Critical Care Progress Note - Nutrition Nutrition: Nutrition Category Date Time Status Dysphagia/Modified Consistency Diet [DIET] Diets 12/29/16 Dinner Active Assessment/Plan - Assessment and Plan (Free Text) Assessment: 89 y.o. 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 and Metabolic encephaloathy 1- Hyperglycemia Hyperosmolar state secondary to uncontrolled Type II DM a- I.V. Fluids- D5% @ 100cc/hr b- Insulin drip- 3units/hr c- Accuchecks q2hrs d- Neurochecks Q2hrs e- Repeat CMP Hypernatremia: 171> 157 a- I.V. fluids- D5% @100cc/hr b- Repeat CMP Diet a- Consistent carbohydrate GI prophylaxis a- Protonix 40mg IVP DVT prophylaxis a- Renally adjust 30mg sc
[2016-12-31] MEDS ORDERED: Sodium Chloride 0.9% 1,000 ML IV SCH (19:45)
[2016-12-31] MEDS ORDERED: Insulin Detemir 100 Units/ml Inj SC STA (23:06)
[2016-12-31] MEDS ORDERED: Insulin Lispro (humaLOG) 100 Units/ml Inj SC STA (23:09)
--- NOTE | 2017-01-01 00:29 | CP.PCM.PN ---
Subjective - Date & Time of Evaluation Date of Evaluation: 12/31/16 Time of Evaluation: 22:22 - Subjective Subjective: Improving Na+ 157 Insulin drip d/c Objective - Vital Signs/Intake and Output Vital Signs (last 24 hours): Temp Pulse Resp BP Pulse Ox 97.5 F L 55 L 23 104/57 L 100 01/01/17 00:00 01/01/17 00:00 01/01/17 00:00 01/01/17 00:00 01/01/17 00:00 Intake and Output: 12/31/16 01/01/17 18:59 06:59 Intake Total 2483 520 Balance 2483 520 - Medications Medications: Current Medications Enoxaparin Sodium (Lovenox) 30 mg SC DAILY [facility] PRN Reason: Protocol Last Admin: 12/31/16 08:17 Dose: 30 mg Dextrose (Dextrose 5% In Water 1000 Ml) 1,000 mls @ 100 mls/hr IV .Q10H [facility] Stop: 01/01/17 20:31 Insulin Detemir (Levemir) 20 units SC HS [facility] Insulin Human Lispro (Humalog) 6 units SC AC [facility] Insulin Human Lispro (Humalog) 0 units SC ACHS [facility] PRN Reason: Protocol Pantoprazole Sodium (Protonix Inj) 40 mg IVP DAILY [facility] Last Admin: 12/31/16 08:17 Dose: 40 mg - Labs Labs: 12/31/16 05:30 12/31/16 05:30 - Respiratory Exam Respiratory Exam: NORMAL BREATHING PATTERN - Cardiovascular Exam Cardiovascular Exam: REGULAR RHYTHM - GI/Abdominal Exam GI & Abdominal Exam: Normal Bowel Sounds Assessment and Plan - Assessment and Plan (Free Text) Assessment: NIDDM Hyperglycemic hyperosmolar state 2 to infectious process ? ? IVF Insukin cultures Hypernatremia Prerenal/ AKD / CKD IVF gradual correction of Na+ Hx COPD ? Atelectasis ? Pneumonia CXR no acute infiltrate
--- NOTE | 2017-01-01 00:30 | CON ---
DATE: 12/31/2016 ENDOCRINOLOGY CONSULTATION LOCATION: ICU, room 430. HISTORY OF PRESENT ILLNESS: This is an 89-year-old male with known history of type 2 insulin-requiri ng diabetes, presenting here with generalized body weakness and supervening marked hyperglycemic acce lerations at home with glucose levels persistently over 600 mg/dL, and was admitted to ICU with hyper osmolar hyperglycemic state and marked hypernatremia and dehydration. On review of system of the ICU hospital course, he has now been on vigorous IV hydration with dextrose infusion, and also has been on an insulin drip infusion for 48 hours or more to the present time. His oral intake has been fairl y satisfactory, but needs feeding assistance, as noted. He is being referred now for diabetic evalua tion because of persistent hyperglycemic fluctuations, as noted. PAST MEDICAL HISTORY: History of type 2 insulin-requiring diabetes, currently on a combination of Le vemir given as 32 units subcutaneous at bedtime daily, with glipizide given as 5 mg once daily, and J anuvia at 100 mg once daily. 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 Also, history of prostate CA, as per hist orical information. FAMILY HISTORY: Positive for hypertension and heart disease. SOCIAL HISTORY: The patient has supportive family. No known substance use. REVIEW OF SYSTEMS: As mentioned above, admits to generalized body weakness with easy fatigability an d tiredness, and increasing hypersomnolence with supervening agitation and restlessness, as per the f amily. No recent chest pains or palpitations, but episodic bouts of shortness of breath, even at res t, as noted. His oral intake has been variable and suboptimal at home with dyspepsia, nausea, and va marisol upper abdominal pains. Has had marked polyuria and nocturia with intermittent urinary incontinen ce. PHYSICAL EXAMINATION: GENERAL: This is an average-built male in no apparent distress. VITAL SIGNS: Blood pressure of 150/90, pulse of 100 beats per minute, regular, temperature 99, resp irations 20. Height is 5 feet 10 inches, weight is 160 pounds. HEENT: Head normocephalic. Eyes anicteric with pink conjunctivae. Fundoscopy not possible at this time. Ears, nose, and throat otherwise normal. NECK: Supple. Thyroid gland is normal size. No carotid bruits. No cervical adenopathy. CARDIOPULMONARY: Some adynamic precordium. S1, S2 are rapid and regular. LUNGS: Show scattered rhonchi. ABDOMEN: Flat, soft, with positive bowel sounds. EXTREMITIES: No peripheral edema. Pulses are +2 bilaterally. LABORATORY DATA: Chemistries done initially showed a BUN of 58, sodium 165, potassium 4.6, chloride 126, CO2 is 24, glucose is 707, and creatinine is 2.9. The lipase is 393. The subsequent glucose le vels have been reviewed in detail. His liver function studies are normal. ASSESSMENT: This is an 89-year-old male with uncontrolled and decompensated type 2 insulin-requiring diabetes, presenting here with hyperosmolar hyperglycemic state and marked dehydration with prerenal azotemia and spurious hypernatremia, with clinical and biochemical evidence of dehydration, as noted . Persistent hyperglycemic fluctuations, although improved, have been noted over the past 48 hours o n the insulin drip infusion, as noted. Plan of management, as discussed with the staff, will discont inue the insulin drip infusion at this time as his glucose levels have leveled off in the mid-200 ran ge with no evidence of metabolic acidosis. Persistent hypernatremia is related to the increased osmo tic diuresis and marked dehydration, both clinically and metabolically, as expected thereof in the pr esence of underlying hyperosmolar hyperglycemic state. PLAN OF MANAGEMENT: As mentioned, we will discontinue the insulin drip infusion at this time and we will switch him over to a basal and bolus insulin regimen, which is more physiologic, and detailed or ders have been given. We will give him a stat dose tonight of Levemir at 12 units subcutaneous and H umalog as 4 units subcutaneous bolus doses tonight as ordered. Then, we will start him tomorrow morn ing on the basal and bolus insulin drug combination with Humalog given as 6 units subcutaneous t.i.d. before meals and Levemir given as 20 units subcutaneous at bedtime daily as ordered. We will modify the coverage scale to a low dose algorithm to obviate hypoglycemia and detailed orders have been giv en for a fingerstick glucose testing to be done a.c. and at bedtime. A very low dose algorithm has be en ordered. We will obtain a hemoglobin A1c to confirm his prior glycemic control and baseline thyro id function studies and lipid panel will be ordered. We will continue the dextrose infusion for timtoeo gement of persistent hypernatremia as noted. We will obtain serial chemistries and supplement accord ingly as needed. Will follow. Kanchan Thomas MD cc: [id number] TT: 01/01/2017 00:29:26 Confirmation # [id number] Dictation # [id number] dn
[2017-01-01 06:34] LABS: HEMATOCRIT 38.6 % (35.0-51.0); MEAN CELL VOLUME 94.4 fl (80.0-94.0); MEAN CORPUSCULAR HEMOGLOBIN 30.1 pg (27.0-31.0); MEAN CORPUSCULAR HGB CONC 31.9 g/dL (33.0-37.0); RED CELL DISTRIBUTION WIDTH 15.7 % (11.5-14.5); WHITE BLOOD COUNT 7.3 K/uL (4.8-10.8)
[2017-01-01 06:41] LABS: ALB/GLOB RATIO 0.9 (1.0-2.1); BILIRUBIN,TOTAL 0.7 mg/dl (0.2-1.3); PHOSPHOROUS 3.3 mg/dl (2.5-4.5); POTASSIUM 3.9 MMOL/L (3.6-5.0); TOTAL PROTEIN 5.6 G/DL (6.3-8.2)
[2017-01-01] MEDS: Insulin Lispro (humaLOG) 100 Units/ml Inj SC SCH ×5 (06:49→16:06)
[2017-01-01 07:11] LABS: THYROID STIMULATING HORMONE 6.5 mIU/ML (0.46-4.68)
[2017-01-01] MEDS: Enoxaparin 30 mg Syringe SC SCH (08:24)
[2017-01-01] MEDS ORDERED: Albuterol-Ipratrop 3 mg / 0.5 (3 ml) UD IH PRN ×2 (10:58→11:06)
--- NOTE | 2017-01-01 14:43 | CP.PCM.PN ---
Subjective - Date & Time of Evaluation Date of Evaluation: 01/01/17 Time of Evaluation: 22:22 - Subjective Subjective: Agitated last night Objective - Vital Signs/Intake and Output Vital Signs (last 24 hours): Temp Pulse Resp BP Pulse Ox 97.8 F 59 L 11 L 122/81 96 01/01/17 12:00 01/01/17 14:00 01/01/17 14:00 01/01/17 14:00 01/01/17 14:00 Intake and Output: 01/01/17 01/01/17 06:59 18:59 Intake Total 1240 1800 Balance 1240 1800 - Medications Medications: Current Medications Albuterol/Ipratropium (Duoneb 3 Mg/0.5 Mg (3 Ml) Ud) 3 ml IH RQ4 PRN PRN Reason: Shortness of Breath Alprazolam (Xanax) 0.5 mg PO BID PRN PRN Reason: Anxiety Amiodarone HCl (Cordarone) 200 mg PO DAILY [facility] Donepezil HCl (Aricept) 5 mg PO DAILY [facility] Last Admin: 01/01/17 12:37 Dose: 5 mg Enoxaparin Sodium (Lovenox) 30 mg SC DAILY [facility] PRN Reason: Protocol Last Admin: 01/01/17 08:24 Dose: 30 mg Hydrochlorothiazide (Microzide) 12.5 mg PO DAILY [facility] Dextrose (Dextrose 5% In Water 1000 Ml) 1,000 mls @ 100 mls/hr IV .Q10H [facility] Stop: 01/01/17 20:31 Last Admin: 01/01/17 06:36 Dose: Not Given Insulin Detemir (Levemir) 20 units SC HS [facility] Insulin Human Lispro (Humalog) 6 units SC AC [facility] Last Admin: 01/01/17 11:52 Dose: 6 u Insulin Human Lispro (Humalog) 0 units SC ACHS [facility] PRN Reason: Protocol Last Admin: 01/01/17 11:53 Dose: Not Given Pantoprazole Sodium (Protonix Ec Tab) 20 mg PO DAILY [facility] Tamsulosin HCl (Flomax) 0.4 mg PO DAILY [facility] Valsartan (Diovan) 320 mg PO DAILY [facility] - Labs Labs: 01/01/17 05:30 01/01/17 05:30 - Respiratory Exam Respiratory Exam: NORMAL BREATHING PATTERN - Cardiovascular Exam Cardiovascular Exam: REGULAR RHYTHM - GI/Abdominal Exam GI & Abdominal Exam: Normal Bowel Sounds Assessment and Plan - Assessment and Plan (Free Text) Assessment: NIDDM Hyperglycemic hyperosmolar state 2 to infectious process ? ? IVF Insulin Hypernatremia Prerenal/ AKD / CKD IVF gradual correction of Na+ Hx COPD ? Atelectasis ? Pneumonia CXR no acute infiltrate repeat CXR
--- NOTE | 2017-01-01 15:01 | RAD ---
PROCEDURE: CHEST RADIOGRAPH, 1 VIEW HISTORY: md order COMPARISON: 12/29/2016 FINDINGS: LUNGS: No pulmonary infiltrate. PLEURA: Nonspecific elevation of right hemidiaphragm, unchanged. No definite pleural effusion. No pneumothorax. CARDIOVASCULAR: Normal. OSSEOUS STRUCTURES: No significant abnormalities. VISUALIZED UPPER ABDOMEN: Normal. OTHER FINDINGS: None. IMPRESSION: Nonspecific elevation of right hemidiaphragm. No pulmonary infiltrate.
[2017-01-01] MEDS: Dextrose 5%/0.45% NS 1,000 ML IV SCH (16:05)
[2017-01-01] MEDS ORDERED: Insulin Lispro (humaLOG) 100 Units/ml Inj SC SCH (17:00)
[2017-01-01] MEDS ORDERED: Insulin Detemir 100 Units/ml Inj SC SCH (22:00)
[2017-01-02] MEDS: Insulin Lispro (humaLOG) 100 Units/ml Inj SC SCH ×8 (01:00→22:02)
[2017-01-02] MEDS: Dextrose 5%/0.45% NS 1,000 ML IV SCH ×2 (03:05→11:53)
[2017-01-02 06:30] LABS: ALB/GLOB RATIO 0.9 (1.0-2.1); BILIRUBIN,TOTAL 0.8 mg/dl (0.2-1.3); CALCIUM 8.1 mg/dL (8.4-10.2); POTASSIUM 3.9 MMOL/L (3.6-5.0); TOTAL PROTEIN 5.7 G/DL (6.3-8.2)
[2017-01-02 06:41] LABS: T4 8.09 ug/dl (5.5-11.0)
[2017-01-02 06:54] LABS: THYROID STIMULATING HORMONE 5.69 mIU/ML (0.46-4.68)
--- NOTE | 2017-01-02 07:52 | PN ---
DATE: 01/01/2017 LOCATION: Room 430, ICU. This is an 89-year-old male with recent uncontrolled type 2 insulin-requiring diabetes, presenting he re with hyperosmolar hyperglycemic state and supervening marked hyperglycemic accelerations and is no w being followed closely for metabolic management. He continued to have persistent hypernatremia and I have switched over to dextrose infusions for free water , and has improved biochemicall y as noted thereof. His glycemic levels also were elevated in the 200+ range and was actually on an insulin drip infusion for over 48 hours as noted thereof. His glycemic levels are fluctuating, but much improved at this time and the latest glucose level now is at lunch time as noted. Hi s latest chemistry showed a BUN of 34, sodium 149, potassium 3.9, chloride 113, CO2 of 25, glucose 25 1, and creatinine 2.1. So, at this time, will modify his basal and bolus insulin regimen and increas e the Levemir to 20 units subQ at bedtime daily to start tonight. Will also increase the Humalog to 10 units subQ t.i.d. before meals to start at dinner time today as ordered. Will continue the low-do se correction scale using Humalog insulin as given. ordered. Will titrate incrementally as in dicated to optimize metabolic control. Will follow. Kanchan Thomas MD cc: [phone] TT: 01/01/2017 15:40:35 Confirmation # [id number] Dictation # [id number] karen
[2017-01-02] MEDS: Levothyroxine 25 MCG TAB PO SCH (07:54)
[2017-01-02] MEDS: Pantoprazole 20 mg EC Tab PO SCH (08:32)
[2017-01-02] MEDS ORDERED: Patient's Own Med (Valsartan/Hydrochlorothiazide [Valsartan-Hctz 320-12.5 Mg Tab] 1 TAB) PO SCH (09:00)
--- NOTE | 2017-01-02 13:52 | PN ---
DATE: 01/02/2017 ROOM: 407 This is an 89-year-old male with recent uncontrolled type 2 insulin-requiring diabetes, presenting he re with hyperosmolar hyperglycemic state and dehydration and is now being followed closely for metabo lic management. His glycemic levels are fluctuating, but improved and his oral intake continues to i mprove as per the nursing staff. His latest chemistry showed a BUN of 34, sodium 149, potassium 3.9, chloride 113, CO2 25, glucose 185 and creatinine 2.1. His thyroid study showed a TSH level of 6.5 ASSESSMENT: Uncontrolled type 2 insulin-requiring diabetes with marked hyperglycemic accelerations a nd underlying hyperosmolar hyperglycemic state and dehydration and is now undergoing closer medical f ollowup with intensive insulin therapy and vigorous IV hydration as given. 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 PLAN OF MANAGEMENT: We will modify the current basal and bolus insulin regimen and increase the Tanisha log to 12 units subQ t.i.d. before meals to start today. We will also increase the Levemir to 26 uni ts subQ at bedtime daily to start tonight. We will continue the added dual oral hypoglycemic drug th erapy given as Januvia at 50 mg once daily and glipizide given as 10 mg b.i.d. Just to add, his gluc ose levels have ranged from 251-232 and 332 mg/dL. So at this time, we will also obtain serial chemi stries and supplement accordingly as needed. We will change the IV hydration to D5 half normal salin e to run at 100 mL per hour and we will obtain serial chemistries and supplement accordingly as corazon hathaway. We will follow. Kanchan Thomas MD cc: [phone] TT: 01/02/2017 13:51:29 Confirmation # [id number] Dictation # [id number] en
--- NOTE | 2017-01-02 18:49 | CP.PCM.PN ---
Subjective - Date & Time of Evaluation Date of Evaluation: 01/02/17 Time of Evaluation: 22:22 - Subjective Subjective: Coughing Objective - Vital Signs/Intake and Output Vital Signs (last 24 hours): Temp Pulse Resp BP Pulse Ox 97.5 F L 59 L 20 172/75 H 97 01/02/17 16:04 01/02/17 16:04 01/02/17 16:04 01/02/17 16:04 01/02/17 16:04 - Medications Medications: Current Medications Albuterol/Ipratropium (Duoneb 3 Mg/0.5 Mg (3 Ml) Ud) 3 ml IH RQ4 PRN PRN Reason: Shortness of Breath Alprazolam (Xanax) 0.5 mg PO BID PRN PRN Reason: Anxiety Last Admin: 01/01/17 20:07 Dose: 0.5 mg Amiodarone HCl (Cordarone) 200 mg PO DAILY [facility] Last Admin: 01/02/17 08:31 Dose: 200 mg Donepezil HCl (Aricept) 5 mg PO DAILY [facility] Last Admin: 01/02/17 08:32 Dose: 5 mg Glipizide (Glucotrol) 10 mg PO BIDAC [facility] Last Admin: 01/02/17 17:25 Dose: 10 mg Hydrochlorothiazide (Microzide) 12.5 mg PO DAILY [facility] Last Admin: 01/02/17 08:31 Dose: 12.5 mg Hydrochlorothiazide (Microzide) 12.5 mg PO DAILY [facility] Last Admin: 01/02/17 17:28 Dose: 12.5 mg Hydrochlorothiazide (Hydrodiuril) 25 mg PO DAILY [facility] Insulin Detemir (Levemir) 20 units SC HS [facility] Last Admin: 01/02/17 00:07 Dose: 20 units Insulin Human Lispro (Humalog) 0 units SC ACHS [facility] PRN Reason: Protocol Last Admin: 01/02/17 17:27 Dose: Not Given Insulin Human Lispro (Humalog) 12 units SC AC [facility] Last Admin: 01/02/17 17:27 Dose: 12 units Levothyroxine Sodium (Synthroid) 25 mcg PO DAILY@0630 [facility] Last Admin: 01/02/17 07:54 Dose: 25 mcg Pantoprazole Sodium (Protonix Ec Tab) 20 mg PO DAILY [facility] Last Admin: 01/02/17 08:32 Dose: 20 mg Sitagliptin Phosphate (Januvia) 50 mg PO DAILY [facility] Last Admin: 01/02/17 08:31 Dose: 50 mg Tamsulosin HCl (Flomax) 0.4 mg PO DAILY [facility] Last Admin: 01/02/17 08:32 Dose: 0.4 mg Valsartan (Diovan) 320 mg PO DAILY [facility] Last Admin: 01/02/17 08:31 Dose: 320 mg - Labs Labs: 01/01/17 05:30 01/02/17 05:45 - Respiratory Exam Respiratory Exam: NORMAL BREATHING PATTERN - Cardiovascular Exam Cardiovascular Exam: REGULAR RHYTHM - GI/Abdominal Exam GI & Abdominal Exam: Normal Bowel Sounds Assessment and Plan - Assessment and Plan (Free Text) Assessment: NIDDM Hyperglycemic hyperosmolar state 2 to infectious process ? ? IVF Endo Hx COPD ? Atelectasis ? Pneumonia CXR no acute infiltrate repeat CXR ? diaghram Pulmonary Prerenal/ AKD / CKD IVF gradual correction of Na+ HTN Cardiology
[2017-01-02] MEDS ORDERED: Insulin Detemir 100 Units/ml Inj SC SCH (22:00)
[2017-01-03] MEDS: Levothyroxine 25 MCG TAB PO SCH (06:02)
[2017-01-03] MEDS: Insulin Lispro (humaLOG) 100 Units/ml Inj SC SCH ×7 (06:33→22:48)
[2017-01-03] MEDS: Pantoprazole 20 mg EC Tab PO SCH (09:25)
--- NOTE | 2017-01-03 15:57 | CP.PCM.PN ---
Subjective - Date & Time of Evaluation Date of Evaluation: 01/03/17 Time of Evaluation: 22:22 - Subjective Subjective: No coughing today BS still elevated Objective - Vital Signs/Intake and Output Vital Signs (last 24 hours): Temp Pulse Resp BP Pulse Ox 97.4 F L 61 18 130/78 96 01/03/17 12:29 01/03/17 12:29 01/03/17 12:29 01/03/17 12:29 01/03/17 12:29 - Medications Medications: Current Medications Albuterol/Ipratropium (Duoneb 3 Mg/0.5 Mg (3 Ml) Ud) 3 ml IH RQ4 PRN PRN Reason: Shortness of Breath Alprazolam (Xanax) 0.5 mg PO BID PRN PRN Reason: Anxiety Last Admin: 01/02/17 22:01 Dose: 0.5 mg Amiodarone HCl (Cordarone) 200 mg PO DAILY [facility] Last Admin: 01/03/17 09:20 Dose: 200 mg Donepezil HCl (Aricept) 5 mg PO DAILY [facility] Last Admin: 01/03/17 09:20 Dose: 5 mg Glipizide (Glucotrol) 10 mg PO BIDAC [facility] Last Admin: 01/03/17 09:24 Dose: 10 mg Hydrochlorothiazide (Microzide) 50 mg PO DAILY [facility] Last Admin: 01/03/17 12:35 Dose: 50 mg Insulin Detemir (Levemir) 24 units SC HS [facility] Last Admin: 01/02/17 22:51 Dose: 24 u Insulin Human Lispro (Humalog) 0 units SC ACHS [facility] PRN Reason: Protocol Last Admin: 01/03/17 12:31 Dose: 4 units Insulin Human Lispro (Humalog) 12 units SC AC [facility] Last Admin: 01/03/17 12:32 Dose: 12 units Levothyroxine Sodium (Synthroid) 25 mcg PO DAILY@0630 [facility] Last Admin: 01/03/17 06:02 Dose: 25 mcg Pantoprazole Sodium (Protonix Ec Tab) 20 mg PO DAILY [facility] Last Admin: 01/03/17 09:25 Dose: 20 mg Sitagliptin Phosphate (Januvia) 50 mg PO DAILY [facility] Last Admin: 01/03/17 09:24 Dose: 50 mg Tamsulosin HCl (Flomax) 0.4 mg PO DAILY [facility] Last Admin: 01/03/17 09:23 Dose: 0.4 mg Valsartan (Diovan) 320 mg PO DAILY [facility] Last Admin: 01/03/17 09:23 Dose: 320 mg - Labs Labs: 01/01/17 05:30 01/02/17 05:45 - Respiratory Exam Respiratory Exam: NORMAL BREATHING PATTERN - Cardiovascular Exam Cardiovascular Exam: REGULAR RHYTHM - GI/Abdominal Exam GI & Abdominal Exam: Normal Bowel Sounds Assessment and Plan - Assessment and Plan (Free Text) Assessment: NIDDM Hyperglycemic hyperosmolar state 2 to infectious process ? ? IVF Endo Hx COPD ? Atelectasis ? Pneumonia CXR no acute infiltrate Prerenal/ AKD / CKD IVF HTN controlled
[2017-01-03] MEDS ORDERED: Insulin Detemir 100 Units/ml Inj SC SCH (22:00)
[2017-01-04] MEDS: Levothyroxine 25 MCG TAB PO SCH (06:17)
[2017-01-04] MEDS: Insulin Lispro (humaLOG) 100 Units/ml Inj SC SCH ×4 (07:07→12:40)
[2017-01-04] MEDS: Pantoprazole 20 mg EC Tab PO SCH (08:44)
[2017-01-04 09:51] VITALS: RESP 20
[2017-01-04 11:54] LABS: HEMATOCRIT 34.5 % (35.0-51.0); MEAN CORPUSCULAR HEMOGLOBIN 30.5 pg (27.0-31.0); MEAN CORPUSCULAR HGB CONC 33.1 g/dL (33.0-37.0); RED CELL DISTRIBUTION WIDTH 15.5 % (11.5-14.5); WHITE BLOOD COUNT 8.5 K/uL (4.8-10.8)
[2017-01-04 11:59] LABS: MEAN CELL VOLUME 92.2 fl (80.0-94.0)
[2017-01-04 12:05] LABS: CALCIUM 7.8 mg/dL (8.4-10.2); POTASSIUM 3.4 MMOL/L (3.6-5.0)
[2017-01-04 12:20] VITALS: BP 166/72; PULSE 65; TEMP 97.7
[2017-01-04 13:45] VITALS: O2SAT 95
[2017-01-04] MEDS ORDERED: Potassium Chloride 20 mEq/15 ml LIQ UD PO ONE (14:30)
--- NOTE | 2017-01-04 15:21 | PQF GENQUE ---
Dr. Marques, (1) If ruled in : Please specify type of pneumonia in the progress notes:i.e. Aspiration pneumonia Please document specific aspirate (food, liquids, etc.) Bacterial (specify organism) Bronchopneumonia (specify organism) Interstitual pneumonia Viral pneumonia Other pneumonia (specify organism or type) Unable to determine Unknown (2) OR: Please document if Pneumonia ruled out Note: Probable and suspected conditions can be coded as if they exist if still documented at the time of discharge. Note: CAP, HAP, and HCAP indicate where the pneumonia was acquired, not a specific type. H and P;Hx COPD ? Atelectasis ? Pneumonia CXR no acute infiltrate attending progress notes:01/02 progress note: Hx COPD ? Atelectasis ? Pneumonia CXR no acute infiltrate repeat CXR ? diaghram Pulmonary and 01/03 progress note : Hx COPD ? Atelectasis ? Pneumonia ;CXR no acute infiltrate -12/29 CXR: Impression: Medial right lower lobe and left basilar atelectasis; infiltrate cannot be excluded in the proper clinical setting. Cardiomegaly. -01/01 CXR: Impression: Nonspecific elevation of right hemidiaphragm. No pulmonary infiltrate. This form is a permanent part of the medical record Clarification of your documentation is requested to better reflect the severity of illness and intensity of treatment of your patient. Indicators present [] Specify: [] [] Specify: [] [] Specify: [] [] Specify: [] Location in the medical record that reflects the above clinical findings: [] Treatment Provided: [] PHYSICIAN'S RESPONSE Based on your medical judgment of the clinical indicators outlined above please clarify the following: [] Practitioner response [] If unable to determine, please check the box, sign and date. Present On Admission (POA) Indicator: [] Present at the time of admission [] Not present at the time of admission [] Clinically Undetermined In responding to this query, please exercise your independent professional judgment. The fact that a question is asked does not imply that any particular answer is desired or expected. Thank you for your clarification on this documentation. If you have any questions please call. * Thank you, Blossom Rich RN BSN ext. #[phone] MTDD
--- NOTE | 2017-01-04 16:09 | PN ---
DATE: 01/04/2017 ROOM: 407 This is an 89-year-old male with recent uncontrolled type 2 insulin-requiring diabetes, presenting he re with hyperosmolar hyperglycemic state and dehydration and is now being followed closely for metabo lic management. He received vigorous IV hydration with intensive insulin therapy and has had remarka ble improvement otherwise and is actually scheduled for discharge today as noted. His glycemic level s are fluctuating, but much improved at this time and the latest chemistries showed a BUN of 21, sodi um 141, potassium 3.4, chloride 109, CO2 of 22, glucose 118 and creatinine 1.5. His glucose levels h ave ranged from 113-129 mg/dL. It was 151-196 at bedtime last night. So, at this time, would recommend the same basal and bolus insulin regimen as given with Humalog give n as 14 units before meals and Levemir given as 30 units at bedtime daily as ordered. We will contin ue the Januvia given as 50 mg once daily with glipizide at 10 mg b.i.d. as ordered. We will titrate incrementally as indicated to optimize metabolic control. We will follow. Kanchan Thomas MD cc: [id number] TT: 01/04/2017 16:09:38 Confirmation # [id number] Dictation # [id number]
--- NOTE | 2017-01-04 21:27 | CP.PCM.PN ---
Subjective - Date & Time of Evaluation Date of Evaluation: 01/04/17 Time of Evaluation: 22:22 - Subjective Subjective: Doing well BS controlled Creat improved Objective - Vital Signs/Intake and Output Vital Signs (last 24 hours): Temp Pulse Resp BP Pulse Ox 97.7 F 65 20 166/72 H 95 01/04/17 13:00 01/04/17 13:00 01/04/17 13:00 01/04/17 13:00 01/04/17 13:00 - Labs Labs: 01/04/17 11:42 01/04/17 11:42 - Respiratory Exam Respiratory Exam: NORMAL BREATHING PATTERN - Cardiovascular Exam Cardiovascular Exam: REGULAR RHYTHM - GI/Abdominal Exam GI & Abdominal Exam: Normal Bowel Sounds Assessment and Plan - Assessment and Plan (Free Text) Assessment: NIDDM Hyperglycemic hyperosmolar state 2 to infectious process ? ? Endo Hx COPD ? Atelectasis ? Pneumonia CXR no acute infiltrate Prerenal/ AKD / CKD IVF HTN controlled
== END 2017-01-04 15:30 | disposition home health service (06) | DRG 637 ==
LOC: H.ER 13:53 → H.ERHOLD 16:58 → H.ICU/CCU 18:48 → H.TEL 01-01 18:02
PROVIDERS: ADMIT Family Medicine Geriatric Medicine; ATTEND Family Medicine Geriatric Medicine
DX: E11.00 Type 2 diabetes mellitus with hyperosmolarity without nonketotic hyperglycemic-hyperosmolar coma (NKHHC) (principal); G93.41 Metabolic encephalopathy; J69.0 Pneumonitis due to inhalation of food and vomit; N17.9 Acute kidney failure, unspecified; E87.0 Hyperosmolality and hypernatremia; E87.2 Acidosis; E11.22 Type 2 diabetes mellitus with diabetic chronic kidney disease; I13.10 Hypertensive heart and chronic kidney disease without heart failure, with stage 1 through stage 4 chronic kidney disease, or unspecified chronic kidney disease; E11.65 Type 2 diabetes mellitus with hyperglycemia; G30.1 Alzheimer's disease with late onset; F02.80 Dementia in other diseases classified elsewhere, unspecified severity, without behavioral disturbance, psychotic disturbance, mood disturbance, and anxiety; E86.0 Dehydration; E06.3 Autoimmune thyroiditis; Z79.4 Long term (current) use of insulin; E78.00 Pure hypercholesterolemia, unspecified; E78.5 Hyperlipidemia, unspecified; I25.10 Atherosclerotic heart disease of native coronary artery without angina pectoris; J44.9 Chronic obstructive pulmonary disease, unspecified; Z85.46 Personal history of malignant neoplasm of prostate; F41.9 Anxiety disorder, unspecified; N18.3 Chronic kidney disease, stage 3 (moderate)